=== PATIENT | female | born 1940 | race Caucasian/White ===

== ENCOUNTER 2018-09-24 05:07 | Day surgery (SDC) | payer MEDICARE, BC ==
[~2018-09-24 05:07] MED LIST: ALENDRONATE SOD40 MG PO; ATIVAN1 MG PO; AVAPRO150 MG PO; CALCIUM 600 +1 EAC3 PO; CELEXA20 MG PO; FUROSEMIDE40 MG PO; HYDROCODON-ACE1 EA10 PO; KLOR-CON 1010 MEQ PO; LEVO-T25 MCG PO; MOBIC7.5 MG PO; PLAVIX75 MG PO; PROTONIX40 MG PO; ROBAXIN500 MG PO; TIROSINT100 MCG PO; VITAMIN D31000 UNI2 PO
[2018-09-24 05:26] LABS: HEMATOCRIT 35.6 % (36.0-48.0); HEMOGLOBIN 11.3 g/dL (12-16); MCHC 31.7 g/dL (31.0-37.0); MCV 97.8 fL (80.0-100.0); MEAN PLATELET VOLUME 12.3 fL (7.4-10.4); RBC 3.64 10x6/uL (4.00-5.40); RDW 13.6 % (11.5-14.5); WBC 6.5 10x3/uL (4.8-10.8)
[2018-09-24 05:47] LABS: ANION GAP 15.1 mmol/L (8-16); CALCIUM 8.6 mg/dL (8.5-10.1); CARBON DIOXIDE 26.2 mmol/L (21.0-32.0); CREATININE - SERUM 1.6 mg/dL (0.6-1.3); POTASSIUM - SERUM 4.3 mmol/L (3.5-5.1)
[2018-09-24 06:24] VITALS: BP 144/49; BMI 32.9
[2018-09-24 06:50] LABS: APTT 27.1 SECONDS (22.8-39.4); INR 1.08 (0.85-1.17); PROTIME 13.5 SECONDS (11.6-15.0)
--- NOTE | 2018-09-24 14:54 | NUR ---
1245 PT ASKING FOR PAIN MEDICATION. PAIN LEVEL IS AT 6-7 IN INTENSITY. 1301 PAIN MEDICATION GIVEN PO. 1351 PT LAUGHING WITH FAMILY MEMBERS. STATES PAIN IS ALMOST GONE. IV DC'D. CATHETER INTACT. PRESSURE HELD UNTIL BLEEDING STOPPED. BANDAID APPLIED. 1415 PT HAS SOME BLEEDING AT BASE OF DSG AFTER SITTING UP TO DRESS. REINFORCED WITH ADDITIONAL DSG AND TEGADERM.
--- NOTE | 2018-10-07 15:29 | OP ---
PATIENT NAME: DARBY FORTE MEDICAL RECORD: [id number] :42 LOCATION:DAY ADMISSION DATE: SURGEON: LORI VANCE MD DATE OF OPERATION: 09/24/2018 PREOPERATIVE DIAGNOSES: Lumbar spinal stenosis and foraminal stenosis at L4-L5 and L5-S1, right, and status post X-Stop implantation at L3-4 and L4-5. SURGEON: Lori Vance MD PROCEDURES: Lumbar laminotomy, medial facetectomy, and foraminotomy L4-L5 right, L5-S1 right, and removal of X-Stop at L4-L5 right. PRIMARY CARE DOCTOR: Dr. Braswell. DESCRIPTION OF TECHNIQUE: After induction of general endotracheal anesthesia, the patient was rolled prone on the Shaun frame. Lumbar spine was prepped and draped in usual sterile fashion. Fluoroscopic x-ray and spinal needle localized at L4-L5 interspace on the right side. After infiltration of 100,000 with epinephrine and lidocaine, a previous incision was incised from the spinous process to L4-S1. Then, using Bovie cautery, the spinous processes and lamina of L4, L5 and S1 were exposed on the right side. The previous X-Stop was identified. The set screw was removed with 3 mm X-Head screwdriver and then the entire X-Stop device was removed. Following this, a laminectomy was carried out at the L4, L5, and S1 on the right as well as foraminotomies. Scar tissue was removed as well and foraminotomies were carried out with L4-L5 on the right and L5-S1 on the right. Hypertrophied ligamentum flavum was removed with Cloward rongeurs. The L4, L5, and S1 nerve roots were identified and found to be well decompressed. Meticulous hemostasis was maintained throughout the wound. Wound was irrigated with copious amounts of Ancef irrigant solution. The fascia was closed with 2-0 Vicryl suture. The subdermal layer was closed with 3-0 Vicryl suture. The skin was reapproximated with corona. A sterile dressing was applied to the wound. The patient was awakened in good condition and taken to recovery. All counts were reported as correct. Estimated blood loss was minimal. TRANSINT:[id number] Voice Confirmation ID: [id number] DOCUMENT ID: [id number] LORI VANCE MD at 1529 CC: [id number] DICTATION DATE: 09/29/182155 BALLET PROFESSOR: 09/30/18 0306 [facility] 09/24/18 [place] [id number] [place] [address]
== END 2018-09-24 14:23 | disposition home or self-care (01) ==
LOC: D.OPS 05:07 → D.PAN 07:30 → D.OPS 14:23
PROVIDERS: Anesthesiology; ATTEND Neurological Surgery
DX: M54.16 Radiculopathy, lumbar region (principal)

== ENCOUNTER 2019-12-14 06:05 | Day surgery (SDC) | payer MEDICARE, BC ==
[2019-12-12 11:27] LABS: ANION GAP 9.1 mmol/L (8-16); CALCIUM 8.7 mg/dL (8.5-10.1); CARBON DIOXIDE 30.4 mmol/L (21.0-32.0); CREATININE - SERUM 1.4 mg/dL (0.6-1.3); HEMATOCRIT 36.5 % (36.0-48.0); HEMOGLOBIN 11.5 g/dL (12-16); MCH 31.7 pg (26.0-34.0); MCHC 31.5 g/dL (31.0-37.0); MCV 100.6 fL (80.0-100.0); MEAN PLATELET VOLUME 12.8 fL (7.4-10.4); POTASSIUM - SERUM 4.5 mmol/L (3.5-5.1); RBC 3.63 10x6/uL (4.00-5.40); RDW 14.4 % (11.5-14.5); WBC 6.5 10x3/uL (4.8-10.8)
--- NOTE | 2019-12-12 11:59 | NUR ---
T-98.4, BP-129/60, P-65, R-16, SAO2%-95
[~2019-12-14] VITALS: Ht 170.2 cm; Wt 99.8 kg
[~2019-12-14 06:05] MED LIST changes: +ALENDRONATE SOD35 MG PO; -ALENDRONATE SOD40 MG PO; +BAYER ASPIRIN325 MG PO; +COZAAR25 MG PO; +SLOW RELEASE I160 MG PO; +VITAMIN B-122500 MCG PO
[2019-12-14 06:54] VITALS: BP 123/51; Ht 170.2 cm; Wt 99.8 kg
[2019-12-14] MEDS ORDERED: PLAVIX75 MG PO (06:58)
[2019-12-14] MEDS ORDERED: ASPIRIN325 MG PO (06:58)
--- NOTE | 2019-12-14 09:59 | NUR ---
RECEIVED PATIENT FROM OR. PATIENT WITH LARYNGOSPASM, OXYGEN SATS STARTED TO DROP. DR. MOSES AND MATT ROBLEDO TREATED PATIENT, PATIENT RECOVERED QUICKLY. REFER TO ANESTHESIA RECORD.
[2019-12-14] MEDS ORDERED: HYDROCODON-ACE1 EA10 PO (10:06)
[2019-12-14] MEDS ORDERED: MEDROL DOSE PACK4 MG PO (10:06)
--- NOTE | 2019-12-14 10:43 | NUR ---
1025 MOVES ALL EXTREMITIES, EXPLAINED TO REMAIN STRAIGHT AND IN BED THIS FIRST HOUR WITHOUT TWISTING OR TURNING, HOB ELEVATED 15 DEGREES. WATER SERVED. CALL LIGHT AT SIDE. DENIES PAIN.
--- NOTE | 2019-12-14 12:42 | OP ---
PATIENT NAME: DARBY FORTE MEDICAL RECORD: [id number] :41 LOCATION:D.OPS ADMISSION DATE: SURGEON: LORI VANCE MD DATE OF OPERATION: 12/14/2019 DATE OF SERVICE: 12/14/2019 PREOPERATIVE DIAGNOSES: Lumbar spinal stenosis with foraminal stenosis, L5-S1 left and L5-S1 right, disk protrusion left L5-S1 foramen. PROCEDURE: Lumbar laminectomy, medial facetectomy and foraminotomy on the left with sublaminar decompression and foraminotomy L5-S1 on the right. SURGEON: Lori Vance MD COMBINATION SAW OPERATOR: Melquiades Liriano APN DESCRIPTION AND TECHNIQUE: After induction of general endotracheal anesthesia, the patient was rolled prone on a Shaun frame. Lumbar spine was prepped and draped in usual sterile fashion. Fluoroscopic x-ray and spinal needle localized the L5-S1 interspace on the left side. After infiltration of 1:100,000 epinephrine and 1% lidocaine, a stab incision was created with a #11 blade. Series of dilators were used to advance a METRx retractor to the L5-S1 interspace on the left side. Level was confirmed with fluoroscopic x-ray. A microscope and Midas Peterson drill were used to perform a laminectomy, medial facetectomy at L5-S1 on the left. Hypertrophied ligamentum flavum was removed with Cloward rongeurs. This decompressed the L5 and S1 nerve roots on the left side. There was a disk protrusion just anterior to the left L5 nerve root. This was removed with the pituitary rongeurs and curettes. Following this, the L5 and S1 nerve roots were decompressed well on the left side. The spinous process of L5 and S1 were undermined with a Midas-Peterson drill. The retractor was tilted to the opposite side. Hypertrophied ligamentum flavum was removed on the opposite side with the Cloward rongeurs. Following this, a L5 and S1 nerve roots on the right side were decompressed as well. Meticulous hemostasis was maintained throughout the wound. The wound was irrigated with copious amounts of Ancef irrigant solution. The fascia was closed with 2-0 Vicryl suture. Subdermal layer was closed with 3-0 Vicryl suture. The skin was closed with corona. During the entirety of the procedure, Melquiades Liriano assisted with retraction and hemostasis as well as closure of the wound. TRANSINT:[id number] Voice Confirmation ID: [id number] DOCUMENT ID: [id number] LORI VANCE MD at 1242 CC: [id number] DICTATION DATE: 12/14/19 1011 INVESTIGATIVE SHOPPER: 12/14/19 1241 [facility] [address] [id number]
== END 2019-12-14 14:00 | disposition home or self-care (01) ==
LOC: D.OPS 06:05 → D.PAN 08:00 → D.OPS 14:00
PROVIDERS: Anesthesiology; ATTEND Neurological Surgery
DX: M48.061 Spinal stenosis, lumbar region without neurogenic claudication (principal); M51.26 Other intervertebral disc displacement, lumbar region; E07.9 Disorder of thyroid, unspecified; I10 Essential (primary) hypertension